=== PATIENT | female | born 1960 | race Caucasian/White ===

== ENCOUNTER → 2023-08-08 15:45 | Outpatient (REF) | payer BC, SELFPAY | LOC: RAD 15:45 | PROVIDERS: ATTENDING PHYSICIAN Nurse Practitioner Adult Health | DX: Z87.891 Personal history of nicotine dependence (principal); Z12.2 Encounter for screening for malignant neoplasm of respiratory organs | CPT/HCPCS: 71271 ==

== ENCOUNTER → 2023-08-20 16:40 | Outpatient (REF) | payer BC, SELFPAY | LOC: WDC 16:40 | PROVIDERS: ATTENDING PHYSICIAN Nurse Practitioner Adult Health | DX: Z12.31 Encounter for screening mammogram for malignant neoplasm of breast (principal) | CPT/HCPCS: 77063; 77067 ==

== ENCOUNTER → 2024-09-02 12:53 | Outpatient (REF) | payer MEDICARE, OTHER, SELFPAY | LOC: WDC 12:53 | PROVIDERS: ATTENDING PHYSICIAN Nurse Practitioner Adult Health | DX: Z12.31 Encounter for screening mammogram for malignant neoplasm of breast (principal) | CPT/HCPCS: 77063; 77067 ==

== ENCOUNTER → 2024-09-24 14:32 | Outpatient (REF) | payer MEDICARE, OTHER, SELFPAY | LOC: RCS 14:32 | PROVIDERS: ATTENDING PHYSICIAN Internal Medicine Cardiovascular Disease; FAMILY PHYSICIAN Nurse Practitioner Adult Health | DX: R00.1 Bradycardia, unspecified (principal); I77.810 Thoracic aortic ectasia | CPT/HCPCS: 93306 ==

== ENCOUNTER 2024-12-22 06:00 | Day surgery (SDC) | payer MEDICARE, OTHER, SELFPAY ==
--- NOTE | 2024-11-29 13:09 | CM ---
CM left message. CM reviewed medical records.
--- NOTE | 2024-12-10 09:10 | VNURNOTE ---
Addendum entered by Isela Diaz RN 12/10/24 09:15:
Correction- patient scheduled for L Total Knee Arthoplasty
Original Note:
Patient is scheduled for an elective L THR on 12/22 - she is a same day patient with Dr Rodriguez. Called patient, no answer, left message. Called patient's cell # and spouse picked up. Spoke with patient's spouse prior to surgery. Introduced role of
[facility] Liaison. Spouse reports that he lives with his in a split level home.
patient had VN services after prior knee surgery.
PCP is Dr Yolanda Daniel
Discussed [facility] joint protocol and post surgical plans.
Reviewed that patient will have VN services initially and will then start outpatient PT.
[facility] for home care needs and will go to [facility] for outpatient PT. Scheduled TBD. Spouse aware to call [facility] to schedule outpt PT for 12/27 or 12/28.
Patient's spouse is in agreement with plan and he will be available to assist spouse post op. Advised to bring RW with him day of surgery. Spouse will relay this conversation to his . All questions answered. Referral placed in [facility].
Plan: [facility] per [facility] joint protocol 12/22 then outpt PT TBD
[2024-12-10 13:56] LABS: Hematocrit 38.8 % (37.0-47.0); Hemoglobin 13.2 g/dL (12.0-16.0); Mean Corp Hgb Conc. 34.0 g/dL (33.0-37.0); Mean Corpuscular Volume 98.0 fL (81.0-99.0); Platelet Count 208 10^3/uL (130-400); Red Cell Dist. Width 12.7 % (11.5-14.5)
[2024-12-10 14:03] VITALS: BMI 20.4
[2024-12-10 14:17] LABS: ALT (SGPT) 47 U/L (0-35); AST (SGOT) 68 U/L (14-36); Albumin 4.8 g/dl (3.5-5.0); Alkaline Phosphatase 74 U/L (38-126); Blood Urea Nitrogen 16 mg/dl (7-17); Calcium 9.9 mg/dl (8.4-10.2); Carbon Dioxide 29 mmol/L (22-30); Chloride 98 mmol/L (98-107); Estimated Creatinine Clearance 73 ml/min; Glucose 97 mg/dl (70-99); Potassium 5.0 mmol/L (3.5-5.1); Sodium 137 mmol/L (135-145); Total Protein 7.5 g/dl (6.3-8.2); eGFR > 60.00
[2024-12-10 14:20] VITALS: BMI 20.4
[2024-12-11 10:30] LABS: Glycohemoglobin (HgbA1c) 5.5 % (4.0-5.6)
--- NOTE | 2024-12-15 12:20 | CM ---
Cm reviewed medical records. Plan for [facility] joint. [facility] hospice liaison spoke with patient.
[2024-12-22] VITALS (12 sets, daily range): BP systolic 107–160; BP diastolic 56–91; BMI 20.4
[2024-12-22] MEDS: DUONEB 3 ML INH (06:57)
[2024-12-22] MEDS: NORMOSOL-R/PLASMALYTE-A 1000 IV (07:19)
[2024-12-22] MEDS: TYLENOL 650 MG PO (07:20)
[2024-12-22] MEDS: DILAUDID 0.5 MG IV ×2 (09:17→09:28)
[2024-12-22] MEDS: ROXICODONE 5 MG PO ×2 (09:49→10:51)
[2024-12-22] MEDS: ANCEF 5 IV (11:42)
== END 2024-12-22 12:30 | disposition home health service (06) ==
LOC: SDS 06:00
PROVIDERS: ATTENDING PHYSICIAN Orthopaedic Surgery; FAMILY PHYSICIAN Nurse Practitioner Adult Health; OTHER PHYSICIAN Internal Medicine; OTHER PHYSICIAN Physician Assistant; REFERRING PHYSICIAN Internal Medicine Critical Care Medicine
DX: M17.12 Unilateral primary osteoarthritis, left knee (principal)
CPT/HCPCS: 27447; 36415; 73560; 80053; 83036; 85027; 87070; 94640; 97163; C1713; C1776

== ENCOUNTER → 2025-02-23 14:16 | Outpatient (REF) | payer MEDICARE, OTHER, SELFPAY | LOC: RAD 14:16 | PROVIDERS: ATTENDING PHYSICIAN Internal Medicine Critical Care Medicine; FAMILY PHYSICIAN Nurse Practitioner Adult Health | DX: Z87.891 Personal history of nicotine dependence (principal) | CPT/HCPCS: 71271 ==